=== PATIENT | female | born 1930 | race Caucasian/White ===

== ENCOUNTER 2016-12-21 20:15 | Emergency (ER) | payer SELFPAY ==
[~2016-12-21] VITALS: Wt 67.0 kg
[~2016-12-21 20:15] MED LIST: ASPI81TA3 PO; BENA40TA41 PO; BISO10TA16 PO; HYD25 PO; LORA1TAB PO; PANT40TA4 PO
== END 2016-12-21 22:15 | disposition left against medical advice (07) ==
LOC: E/R 20:15
DX: Z53.21 Procedure and treatment not carried out due to patient leaving prior to being seen by health care provider (principal)

== ENCOUNTER 2016-12-28 07:42 | Emergency (ER) | payer BC ==
[~2016-12-28] VITALS: Ht 165.1 cm; Wt 65.0 kg
[2016-12-28 07:46] VITALS: Ht 165.1 cm; Wt 65.0 kg
[2016-12-28] MEDS ORDERED: OXYMETAZOLINE 0.05% 15 ML NAS SPRAY NASAL ONE (08:00)
[2016-12-28] MEDS ORDERED: CHOL500051 PO (08:09)
--- NOTE | 2016-12-28 08:12 | ERD ---
ER Documentation Chief Complaint Date/Time DATE: 12/28/16 TIME: 08:05 Chief Complaint nose bleeding started 30 mins ago.denies pain HPI This is an 86-year-old Amharic speaking female with known history of hypertension. She presents to the emergency department after she woke this morning and had a sudden onset of unilateral right-sided epistaxis. She states she did not feel any blood within the posterior pharynx. She had an episode of nasal bleeding from the right nostril yesterday afternoon was able to be resolved with pressure. Roughly 20 years ago she had a similar nosebleed that required cauterization according to the patient. Since then she has had no recurrent nosebleeds. She does take 81 mg of aspirin on a daily basis but has not taken the aspirin for the past 2 days due to the nasal bleeding. She has had no fevers no shaking or chills. She denies any abdominal pain. She denies any chest pain. She has no shortness of breath at rest or exertion. She denies any dyspnea. She denies any recent instrumentation into the nasal naris. ROS All systems reviewed and are negative except as per history of present illness. Medications Home Meds Reported Medications Pantoprazole* (Pantoprazole*) 40 Mg Tablet.dr, 40 MG PO DAILY, TAB 10/21/16 Benazepril Hcl* (Benazepril Hcl*) 40 Mg Tablet, 40 MG PO DAILY, #30 TAB 10/21/16 Lorazepam* (Lorazepam*) 1 Mg Tablet, 1 MG PO HS Y for ANXIETY, #30 TAB 10/21/16 Bisoprolol Fumarate* (Bisoprolol Fumarate*) 10 Mg Tablet, 10 MG PO DAILY, TAB 08/15/14 Aspirin* (Aspirin* Chew) 81 Mg Tab.chew, 81 MG PO DAILY, TAB.CHEW 08/15/14 Hydrochlorothiazide* (Hydrochlorothiazide*) 25 Mg Tab, 25 MG PO DAILY, TAB 08/15/14 Allergies Allergies: Coded Allergies: No Known Allergy (Unverified , 10/21/16) PMhx/Soc History of Surgery: Yes (appendectomy and sx by neck area) Anesthesia Reaction: No Hx Neurological Disorder: No Hx Respiratory Disorders: No Hx Cardiac Disorders: Yes (htn) Hx Psychiatric Problems: No Hx Miscellaneous Medical Probl: Yes (pancreatitis) Hx Alcohol Use: No Hx Substance Use: No Hx Tobacco Use: No Physical Exam Vitals Vital Signs Date Time Temp Pulse Resp B/P Pulse Ox O2 Delivery O2 Flow Rate FiO2 12/28/16 07:46 98.5 77 18 185/84 98 Physical Exam Constitutional:Well-developed. Well-nourished. HEENT:Normocephalic. Atraumatic.Pupils were equal round reactive to light. Moist mucous membranes.No tonsillar exudates. No blood present within the oropharynx. Unilateral anterior epistaxis of the right nostril specifically. No nasal septal hematoma. Neck: No nuchal rigidity. No lymphadenopathy. No posterior cervical spine tenderness or step-offs. Respiratory: Not using accessory muscles of respiration.Lungs were clear to auscultation bilaterally. No rhonchi. No rales. No wheezing. Cardiovascular: Regular rate regular rhythm.No murmurs. No rubs were appreciated.S1, S2 normal. Distal pulses are palpable 2+ bilaterally. Skin: No petechia, no purpura. No lesions on the palms or the soles of the feet. No maculopapular rash. NEURO: Patient was alert, awake, orientated x3.No facial droop. Gait observed and normal with no ataxia.Speech had regular rate and rhythm. No focal neurological deficits. Results 24 hrs Current Medications Medications (Trade) Dose Ordered Sig/[place] Route PRN Reason Start Time Stop Time Status Last Admin Dose Admin Oxymetazoline HCl (Afrin [place]) 2 spray ONCE ONCE NASAL 12/28/16 08:00 12/28/16 08:01 DC Procedures/MDM This patient presented to the emergency department with unilateral anterior epistaxis which appeared to be a source of bleeding from Kiesselbach plexus. The patient has no history of coagulopathy and this does not appear to be a drug -induced epistaxis as the patient is not on heparin Coumadin NSAIDs or salicylates. There is no physical exam findings to suggest neoplasm. I did obtain ancillary laboratory work which showed no anemia. The patient's airway was secured. The patient was given a vasoactive solution of oxymetazoline into the right nostril and an anterior nasal tampon was inserted at a 45 angle roughly 1-2 cm into the nasal cavity. Hemostasis was controlled. Antibiotic ointment had been placed onto the nasal tampon prior to insertion. As well as adequate anesthesia which included viscous lidocaine. The patient appeared to be stable for discharge and was placed on prophylactic antibiotics which included anti-staphylococcal and therefore was given Keflex. The patient was discharged home in fair condition. They were instructed to return to the emergency department at any time if there was any worsening of their condition. The patient stated they would follow up with their PCP in the next 24-48 hours to initiate a suitable medication regimen under the care of their PCP as well as to allow their PCP to monitor any drug reactions. The patient was discharged home with prescriptions after they gave informed consent to the new medication. They were also fully informed by myself on the adverse effects and adverse drug interactions in order to provide adequate safeguards to prevent possible adverse reactions to medications. Departure Diagnosis: Primary Impression: Anterior epistaxis Condition: Fair RITIKA MILLER Dec 28, 2016 08:12
[2016-12-28 08:19] VITALS: BP 135/81; PULSE 65; RESP 18; TEMP 97.4
[2016-12-28] MEDS ORDERED: CEPH-443 PO (08:29)
[2016-12-28] MEDS ORDERED: BACITRACIN 0.9 GM OINT TOP ONE (08:30)
[2016-12-28 08:38] LABS: INR 1.06; PROTIME 13.8 Sec (12.2-14.2); PT RATIO 1.1
[2016-12-28 08:40] LABS: BASOPHILS % 0.6 % (0.0-2.0); EOSINOPHILS # 0.1 10^3/ul (0.0-0.5); HEMATOCRIT 38.2 % (37.0-47.0); HEMOGLOBIN 13.4 g/dl (12.0-16.0); LYMPHOCYTES # 1.9 10^3/ul (0.8-2.9); LYMPHOCYTES % 39.4 % (15.0-51.0); MEAN CORPUSCULAR HEMOGLOBIN 29.7 pg (29.0-33.0); MEAN CORPUSCULAR VOLUME 84.8 fl (82.0-101.0); MONOCYTE # 0.3 10^3/ul (0.3-0.9); MONOCYTES % 6.2 % (0.0-11.0); NEUTROPHIL # 2.6 10^3/ul (1.6-7.5); NEUTROPHILS % 52.8 % (39.0-77.0); PLATELET COUNT 220 10^3/UL (140-440); RED CELL DISTRIBUTION WIDTH 13.8 % (11.5-14.5); UNCORRECTED WBC 4.9 10^3/ul (4.8-10.8); WHITE BLOOD COUNT 4.9 10^3/ul (4.8-10.8)
[2016-12-28 08:44] LABS: CONDITION 1
== END 2016-12-28 09:02 | disposition home or self-care (01) ==
LOC: E/R 07:42
DX: R04.0 Epistaxis (principal); I10 Essential (primary) hypertension; Z79.82 Long term (current) use of aspirin
CPT/HCPCS: 30903; 85025; 85610; 85730; Z7610